=== PATIENT | female | born 1985 | race Caucasian/White ===

== ENCOUNTER 2021-10-28 08:17 | Outpatient (CLI) | payer MEDICAID | END 2021-10-28 08:18 | disposition home or self-care (01) | LOC: CSHULT 08:17 | PROVIDERS: ATTEND Family Medicine | DX: O09.522 Supervision of elderly multigravida, second trimester (principal); Z3A.21 21 weeks gestation of pregnancy | CPT/HCPCS: 76805 ==

== ENCOUNTER 2022-02-24 15:09 | Inpatient (IN) | payer MEDICAID, OTHER ==
[2022-02-21 12:57] LABS: #Basophils 0.1 10x3/uL (0.0-0.2); #Eosinphils 0.1 10x3/uL (0.0-0.5); #Monocytes 0.4 10x3/uL (0.0-1.1); #Neutrophils 4.7 10x3/uL (1.5-8.4); %Basophils 0.9 % (0.0-2.0); %Eosinophils 1.4 % (0.0-6.0); %Lymphocytes 19.8 % (18.0-47.0); %Monocytes 5.9 % (0.0-10.0); %Neutrophils 70.5 % (40.0-75.0); Hemoglobin 11.3 g/dL (12.0-15.5); Mean Corpuscular HGB CONC 34.5 g/dL (32.0-36.0); Mean Corpuscular Volume 81.2 fl (81.6-98.3); Mean Platelet Volume 10.8 fl (7.4-10.4); Platelet Count 168 10x3/uL (150-450); RBC Distribution Width 15.4 % (11.5-14.5); Red Blood Cell (RBC) Count 4.04 10x6/uL (3.90-5.03); White Blood Cell (WBC) Count 6.6 10x3/uL (3.5-10.5)
[2022-02-21 13:23] LABS: SARS-CoV-2 NAA Rapid Test Not Detected (NotDetected)
[2022-02-21 13:37] LABS: HBSAg Index 0.32 S/CO (0-0.99); Hep B Surf Ag Non-Reactive S/CO (NonReactive); Syphilis Antibody Nonreactive (Nonreactive); Syphilis Antibody Index 0.03 S/CO (<1.00 Non-Reactive)
[2022-02-24 15:55] VITALS: BMI 39.2
[2022-02-24] MEDS ORDERED: Bicitra 30 ML UDCUP PO PRN (15:57)
[2022-02-24] MEDS ORDERED: Ondansetron PF 4 MG/2 ML Vial IVP PRN ×2 (15:57→16:06)
[2022-02-24] MEDS ORDERED: Promethazine HCl 25 MG/ML VIAL IM PRN ×2 (15:57→16:06)
[2022-02-24] MEDS ORDERED: hydrALAZINE 20 MG/ML VIAL SLOW IVP PRN (15:57)
[2022-02-24] MEDS ORDERED: Famotidine/PF 20 mg/2ml Vial SLOW IVP PRN (15:57)
[2022-02-24] MEDS ORDERED: CEFAZOLIN 2 GM in Sodium Chloride 0.9% 100 ML IVPB SCH (15:57)
[2022-02-24] MEDS ORDERED: Naloxone HCl 0.4 mg/ml Vial IV PRN (16:06)
[2022-02-24] MEDS ORDERED: Moisturizing Cream (Eucerin) 113 GM JAR TOP PRN (16:06)
[2022-02-24] MEDS ORDERED: Meperidine HCl/PF 25 MG/ML VIAL SLOW IVP PRN (16:06)
[2022-02-24] MEDS ORDERED: Naloxone HCl 0.4 mg/ml Vial IVP PRN ×2 (16:06)
[2022-02-24] MEDS ORDERED: diphenhydrAMINE 50 MG/ML VIAL IVP PRN (16:06)
[2022-02-24] MEDS ORDERED: Ondansetron HCl/PF 4 MG/2 ML Vial IVP PRN (16:06)
[2022-02-24] MEDS ORDERED: Fentanyl 100 MCG/2 ML VIAL SLOW IVP PRN (16:06)
[2022-02-24] MEDS ORDERED: Promethazine HCl 25 MG SUPP PR PRN (16:06)
[2022-02-24] MEDS ORDERED: Communication Order-Pharmacy FS SCH (16:15)
[2022-02-24] MEDS ORDERED: Ondansetron PF 4 MG/2 ML Vial ONE (16:23)
[2022-02-24] MEDS ORDERED: Dexamethasone 4 mg/ml Vial ONE (16:23)
[2022-02-24] MEDS ORDERED: Fentanyl 100 MCG/2 ML VIAL ONE (16:23)
[2022-02-24] MEDS ORDERED: Morphine PF 10 MG/10 ML VIAL ONE (16:23)
[2022-02-24] MEDS ORDERED: Phenylephrine 40 MG/NS 250 ML 250 ML ONE (16:23)
[2022-02-24] MEDS ORDERED: Ketorolac Tromethamine 30 MG/ML VIAL ONE (16:23)
[2022-02-24] MEDS ORDERED: Oxytocin 10 UNITS/ML VIAL ONE (16:23)
[2022-02-24] MEDS: Lactated Ringer's 1,000 ML IV SCH (22:10)
[2022-02-24] MEDS: Ketorolac Tromethamine 30 MG/ML VIAL IVP SCH (23:35)
[2022-02-25] MEDS: Ketorolac Tromethamine 30 MG/ML VIAL IVP SCH ×3 (04:41→18:37)
[2022-02-25] MEDS ORDERED: diphenhydrAMINE 25 MG CAP PO PRN (07:09)
[2022-02-25] MEDS ORDERED: Boostrix 0.5 ML (Tdap) VIAL (>/=7 yrs of age) IM ONE (07:09)
[2022-02-25] MEDS ORDERED: Ondansetron PF 4 MG/2 ML Vial IVP PRN (07:09)
[2022-02-25] MEDS ORDERED: NS w/ Oxytocin 30 units 500 ML IV SCH (07:09)
[2022-02-25] MEDS ORDERED: hydrALAZINE 20 MG/ML VIAL SLOW IVP PRN (07:09)
[2022-02-25] MEDS ORDERED: Simethicone Chewable 80 MG TAB PO PRN (07:09)
[2022-02-25] MEDS ORDERED: Lanolin Ointment 7 GM TUBE TOP PRN (07:09)
[2022-02-25] MEDS ORDERED: Promethazine HCl 25 MG/ML VIAL IM PRN (07:09)
[2022-02-25] MEDS ORDERED: Bisacodyl 10 MG SUPP PR PRN (07:09)
[2022-02-25] MEDS ORDERED: Ferrous Sulfate 325 MG TAB PO SCH (08:00)
[2022-02-25] MEDS ORDERED: Docusate 100 MG CAP PO SCH (08:00)
[2022-02-25] MEDS: Prenatal Vitamin 1 TAB PO SCH (08:54)
[2022-02-25] MEDS: HYDROcodone/Acetaminophen 5/325 mg Tablet PO PRN ×3 (08:55→21:53)
[2022-02-25] MEDS: Lactated Ringer's 1,000 ML IV SCH (17:40)
[2022-02-25] MEDS: Ferrous Sulfate 325 MG TAB PO SCH (19:23)
[2022-02-25] MEDS: Docusate 100 MG CAP PO SCH (21:53)
[2022-02-25] MEDS ORDERED: Ibuprofen 800 MG TAB PO SCH (22:00)
[2022-02-26] MEDS: Ibuprofen 800 MG TAB PO SCH ×3 (00:12→17:54)
[2022-02-26 04:28] LABS: Hemoglobin 8.9 g/dL (12.0-15.5); Mean Corpuscular HGB CONC 33.8 g/dL (32.0-36.0); Mean Corpuscular Hemoglobin 28.2 pg (27.0-33.0); Mean Corpuscular Volume 83.2 fl (81.6-98.3); Mean Platelet Volume 12.4 fl (7.4-10.4); Platelet Count 158 10x3/uL (150-450); RBC Distribution Width 15.7 % (11.5-14.5); Red Blood Cell (RBC) Count 3.16 10x6/uL (3.90-5.03)
[2022-02-26] MEDS: HYDROcodone/Acetaminophen 5/325 mg Tablet PO PRN ×4 (05:52→21:03)
[2022-02-26] MEDS: Docusate 100 MG CAP PO SCH ×2 (09:05→21:04)
[2022-02-26] MEDS: Prenatal Vitamin 1 TAB PO SCH (09:05)
[2022-02-26] MEDS: Ferrous Sulfate 325 MG TAB PO SCH ×2 (09:05→21:04)
[2022-02-26] MEDS ORDERED: Ibuprofen 800 MG TAB PO SCH (14:00)
[2022-02-27] MEDS: Ibuprofen 800 MG TAB PO SCH ×2 (01:50→09:25)
[2022-02-27] MEDS: HYDROcodone/Acetaminophen 5/325 mg Tablet PO PRN ×2 (04:40→08:40)
[2022-02-27 08:16] VITALS: BP 130/70; TEMP 98.2
[2022-02-27] MEDS: Docusate 100 MG CAP PO SCH (08:40)
[2022-02-27] MEDS: Ferrous Sulfate 325 MG TAB PO SCH (08:40)
[2022-02-27] MEDS: Prenatal Vitamin 1 TAB PO SCH (08:40)
== END 2022-02-27 11:25 | disposition home or self-care (01) | DRG 788 ==
LOC: CSHLD 15:09 → CSHPP 21:05
PROVIDERS: ADMIT Family Medicine; ATTEND Family Medicine
PROC: 10D00Z1 Extraction of Products of Conception, Low, Open Approach (ICD-10-PCS; principal; 2022-02-24)
DX: O34.211 Maternal care for low transverse scar from previous cesarean delivery (principal); Z20.822 Contact with and (suspected) exposure to COVID-19; Z3A.39 39 weeks gestation of pregnancy; Z37.0 Single live birth; Z79.899 Other long term (current) drug therapy
CPT/HCPCS: 36415; 51702; 85025; 85027; 86780; 86850; 86900; 86901; 87340; 99285; J1100; J1885; J2274; J2405; J2550; J2590; J3010; J7120; S0028; U0002